=== PATIENT | female | born 1960 | race African-American/Black ===

== ENCOUNTER 2017-08-15 20:27 | Observation (INO) | payer OTHER ==
[2017-08-15] MEDS ORDERED: METOPROLOL SUCCINATE 50 MG TAB.SR.24H (FP) PO ONE (22:02)
[2017-08-15] MEDS ORDERED: ALBUTEROL SO4 2.5/IPRATROPIUM 0.5 INH SOL 3 ML VIAL.NEB. NEB ONE (22:03)
[2017-08-15] MEDS ORDERED: NITROGLYCERIN SUBLINGUAL 1/150 0.4 MG TAB SL ONE (22:03)
[2017-08-15] MEDS ORDERED: SODIUM CHLORIDE 0.9% 500 ML INFUS.BAG IV ONE (22:04)
--- NOTE | 2017-08-15 22:04 | PDOC ---
History of Present Illness - General History Source: Patient Exam Limitations: No Limitations - History of Present Illness Initial Comments: 08/15/17 22:15 The patient is a 56 year old female with a significant PMH of hypertension, hyperlipidemia, CAD, asthma/COPD who presents to the emergency department with complaints of congestion and headache that began approximately two days. The patient has not eaten anything today besides a glass of orange juice. The patient states she had her flu shot. The patient denies chest pain, shortness of breath, and dizziness. Denies fever, chills, nausea, vomit, diarrhea and constipation. Denies dysuria, frequency, urgency and hematuria. Allergies: NKA Past surgical history: None reported. Social history: Current smoker. No alcohol or drug use. PCP: Dr. Leiva <Stefanie Stout - Last Filed: 08/16/17 01:21> <Kayleigh Lind - Last Filed: 08/16/17 01:35> - General Chief Complaint: Cold Symptoms Stated Complaint: FATIGUE Time Seen by Provider: 08/15/17 21:25 Past History <Stefanie Stout - Last Filed: 08/16/17 01:21> - Past Medical History Asthma: Yes COPD: No HTN: Yes Seizures: Yes - Suicide/Smoking/Psychosocial Hx Smoking History: Never smoked Have you smoked in the past 12 months: No Number of Cigarettes Smoked Daily: 20 Information on smoking cessation initiated: No Hx Alcohol Use: No Drug/Substance Use Hx: No Substance Use Type: None <Kayleigh Lind - Last Filed: 08/16/17 01:35> - Past Medical History Allergies/Adverse Reactions: Allergies Allergy/AdvReac Type Severity Reaction Status Date / Time No Known Allergies Allergy Verified 08/15/17 20:41 Home Medications: Ambulatory Orders Aspirin [ASA -] 81 mg PO DAILY 10/17/13 Cyclobenzaprine HCl [Flexeril] 10 mg PO TID PRN #7 tablet 10/17/13 Lisinopril/Hydrochlorothiazide [Zestoretic 20-12.5 Tablet] 1 each PO DAILY 10/17 Metoprolol Succinate [Toprol XL -] 100 mg PO DAILY 10/17/13 Montelukast Na [Singulair -] 10 mg PO HS 10/17/13 Naproxen [Naprosyn -] 250 mg PO BID PRN #10 tablet 10/17/13 Oxycodone HCl/Acetaminophen [Percocet 5-325 mg Tablet -] 1 - 2 tab PO Q4H #20 tablet 01/08/14 Prednisone [Deltasone -] 10 mg PO DAILY #10 tablet 01/08/14 Review of Systems - Review of Systems Able to Perform ROS?: Yes Comments:: 08/15/17 22:08 GENERAL/CONSTITUTIONAL: No fever or chills. No weakness. HEAD, EYES, EARS, NOSE AND THROAT: No change in vision. No ear pain or discharge. No sore throat. CARDIOVASCULAR: No chest pain or shortness of breath. RESPIRATORY: (+) Congestion. (+) Wheezing. No hemoptysis. GASTROINTESTINAL: No nausea, vomiting, diarrhea or constipation. GENITOURINARY: No dysuria, frequency, or change in urination. MUSCULOSKELETAL: No joint or muscle swelling or pain. No neck or back pain. SKIN: No rash NEUROLOGIC: (+) Headache. No vertigo, loss of consciousness, or change in strength/sensation. ENDOCRINE: No increased thirst. No abnormal weight change. HEMATOLOGIC/LYMPHATIC: No anemia, easy bleeding, or history of blood clots. ALLERGIC/IMMUNOLOGIC: No hives or skin allergy. <Stefanie Stout - Last Filed: 08/16/17 01:21> *Physical Exam - Vital Signs Last Vital Signs Temp Pulse Resp BP Pulse Ox 98.5 F 98 H 20 186/130 100 08/15/17 20:36 08/15/17 20:36 08/15/17 20:36 08/15/17 20:36 08/15/17 20:36 - Physical Exam Comments: 08/15/17 22:07 GENERAL: Awake, alert, and fully oriented, in no acute distress HEAD: No signs of trauma EYES: PERRLA, EOMI, sclera anicteric, conjunctiva clear ENT: Auricles normal inspection, hearing grossly normal, nares patent, oropharynx clear without exudates. Moist mucosa NECK: Normal ROM, supple, no lymphadenopathy, JVD, or masses LUNGS:(+) Rales and wheezing bilaterally. No crackles. HEART: Regular rate and rhythm, normal S1 and S2, no murmurs, rubs or gallops ABDOMEN: Soft, nontender, normoactive bowel sounds. No guarding, no rebound. No masses EXTREMITIES: Normal range of motion, no edema. No clubbing or cyanosis. No cords, erythema, or tenderness NEUROLOGICAL: Cranial nerves II through XII grossly intact. Normal speech, normal gait SKIN: Warm, Dry, normal turgor, no rashes or lesions noted. <Stefanie Stout - Last Filed: 08/16/17 01:21> - Vital Signs Last Vital Signs Temp Pulse Resp BP Pulse Ox 98.5 F 98 H 20 186/130 100 08/15/17 20:36 08/15/17 20:36 08/15/17 20:36 08/15/17 20:36 08/15/17 20:36 <Kayleigh Lind - Last Filed: 08/16/17 01:35> Heart Score/ECG Review #1 08/16/17 01:21 EKG performed at [22:24] demonstrates rate of [102], rhythm of [Tachycardia], Bilateral enlargement. <Stefanie Stout - Last Filed: 08/16/17 01:21> ED Treatment Course - LABORATORY CBC & Chemistry Diagram: 08/15/17 22:48 08/15/17 23:14 <Stefanie Stout - Last Filed: 08/16/17 01:21> - LABORATORY CBC & Chemistry Diagram: 08/15/17 22:48 08/15/17 23:14 <Kayleigh Lind - Last Filed: 08/16/17 01:35> Medical Decision Making - Medical Decision Making 08/15/17 22:11 Pt comes with COPD and HTN and weakness x 1 day. States that she has had nothing to eat and that she dowsn't feels well. SHe has wheezing and rales bilaterally and she appears weak. 91% O2 on RA. She has 180s BP. After 2 SL NTG she goes down to 150 systolic/90 Pt will have duonebs and she will be given her metoprolol and procardia (pt carries her list of meds) Pt will get CXR, labs, EKG. 08/16/17 01:19 Pt still sounds awful and she will be admitted to medicine obs for asthma COPD exacerbation. <Kayleigh Lind - Last Filed: 08/16/17 01:35> *DC/Admit/Observation/Transfer - Attestations Scribe Attestion: 08/15/17 22:15 Documentation prepared by Stefanie Stout, acting as ophthalmic medical technologist for Kayleigh Lind MD. <Stefanie Stout - Last Filed: 08/16/17 01:21> - Discharge Dispostion Admit: Yes <Kayleigh Lind - Last Filed: 08/16/17 01:35> Diagnosis at time of Disposition: COPD exacerbation, Asthma exacerbation, Hypertension - Discharge Dispostion Condition at time of disposition: Guarded - Referrals Referrals: Yane Leiva MD [Primary Care Provider] - - Patient Instructions - Post Discharge Activity
[2017-08-15] MEDS ORDERED: ASPIRIN 81 MG CHEWABLE TABLETS PO ONE (22:13)
[2017-08-15] MEDS ORDERED: NIFEdipine 10 MG CAPSULE (FP) ONE (22:46)
[2017-08-15] MEDS ORDERED: METOPROLOL SUCCINATE 50 MG TAB.SR.24H (FP) ONE (22:46)
[2017-08-15] MEDS ORDERED: NITROGLYCERIN SUBLINGUAL 1/150 0.4 MG TAB ONE (22:46)
[2017-08-15 22:54] LABS: EOS % 14.4 % (0-4.5); HEMATOCRIT 42.3 % (32.4-45.2); HEMOGLOBIN 13.4 GM/dL (10.7-15.3); LYMPH % 31.1 % (8-40); MCH 27.2 pg (25.7-33.7); MCHC 31.7 g/dl (32.0-36.0); MEAN CELL VOLUME 85.8 fl (80-96); MEAN PLT VOLUME 9.5 fl (7.5-11.1); MONO % 8.6 % (3.8-10.2); NEUT % 44.9 % (42.8-82.8); PLATELET COUNT 290 K/MM3 (134-434); RBC 4.93 M/mm3 (3.60-5.2); RDW 14.1 % (11.6-15.6); WHITE BLOOD COUNT 8.4 K/mm3 (4.0-10.0)
[2017-08-15 23:08] LABS: INR 1.08 (0.82-1.09); PROTHROMBIN TIME (PATIENT) 12.2 SEC (9.98-11.88)
[2017-08-15 23:58] LABS: ANION GAP 7 (8-16); BILIRUBIN,TOTAL 0.5 mg/dL (0.2-1.0); BLOOD UREA NITROGEN 8 mg/dL (7-18); CALCIUM 8.5 mg/dL (8.5-10.1); CHLORIDE 102 mmol/L (98-107); CO2 32 mmol/L (21-32); CREATININE 0.7 mg/dL (0.55-1.02); GLUCOSE,RANDOM 104 mg/dL (74-106); POTASSIUM 3.5 mmol/L (3.5-5.1); SGOT/AST 23 U/L (15-37); SGPT/ALT 20 U/L (12-78); SODIUM 141 mmol/L (136-145); TOT PROT 7.3 g/dl (6.4-8.2)
[2017-08-15 23:59] LABS: ALK PHOS 115 U/L (45-117); N-TERMINAL BNP 183.63 pg/ml (5-125)
[2017-08-16] MEDS ORDERED: DEXAMETHASONE LIQUID 0.5 MG/5 ML 240 ML BULK BOTTLE PO ONE (01:17)
[2017-08-16] MEDS ORDERED: ALBUTEROL SO4 2.5/IPRATROPIUM 0.5 INH SOL 3 ML VIAL.NEB. NEB ONE ×4 (01:19→08:06)
[2017-08-16] MEDS ORDERED: methylPREDNISolone NA SUCC 125 MG/2 ML VIAL IVPB ONE (01:29)
[2017-08-16] MEDS ORDERED: MAGNESIUM SULF 50% (8.12 MEQ/2 ML-1 GM VIAL) IVPB ONE (02:19)
[2017-08-16] MEDS ORDERED: ACETAMINOPHEN 325 MG TABLET (FP) PO ONE (02:22)
[2017-08-16] MEDS ORDERED: CYCLOBENZAPRINE HCL 10 MG TABLET (FP) PO PRN (02:35)
[2017-08-16] MEDS ORDERED: GABAPENTIN 300 MG CAPSULE (FP) PO PRN (02:35)
[2017-08-16] MEDS ORDERED: ALBUTEROL SO4 0.083% IH SOL 2.5 MG/3 ML VIAL.NEB. NEB PRN (02:38)
--- NOTE | 2017-08-16 02:39 | HP ---
CHIEF COMPLAINT: chest congestion and headache PCP: Abbie HISTORY OF PRESENT ILLNESS: This is a 56 year old female with a significant past medical history of asthma/ COPD and CAD who presented to the ED with a 2 day history of increased unproductive cough, chest congestion/wheezing and headache ER course was notable for: (1) WBC 8.4 (2) CXR with no obvious acute infiltrates Recent Travel: [place] in June PAST MEDICAL HISTORY: HTN, HLD, CAD, COPD PAST SURGICAL HISTORY: 23 years ago 1 stent - cardiac age 41 or 42 partial thyroidectomy 2010 Social History: Smokinppd Alcohol: pt denies Drugs: pt denies Family History: mother with HTN, DM, lung CA father , complications of ETOH maternal GF , stomach CA brother with HTN, DM son with HTN Allergies No Known Allergies Allergy (Verified 08/15/17 20:41) HOME MEDICATIONS: 3 Medication Instructions Recorded Aspirin [ASA -] 81 mg PO DAILY 10/17/13 Cyclobenzaprine HCl [Flexeril] 10 mg PO TID PRN #7 tablet 10/17/13 Lisinopril/Hydrochlorothiazide 1 each PO DAILY 10/17/13 [Zestoretic 20-12.5 Tablet] Metoprolol Succinate [Toprol XL -] 100 mg PO DAILY 10/17/13 Montelukast Na [Singulair -] 10 mg PO HS 10/17/13 Naproxen [Naprosyn -] 250 mg PO BID PRN #10 tablet 10/17/13 Oxycodone HCl/Acetaminophen 1 - 2 tab PO Q4H #20 tablet 01/08/14 [Percocet 5-325 mg Tablet -] Prednisone [Deltasone -] 10 mg PO DAILY #10 tablet 01/08/14 REVIEW OF SYSTEMS CONSTITUTIONAL: Absent: fever, chills, diaphoresis, generalized weakness, malaise, loss of appetite, weight change HEENT: Absent: rhinorrhea, nasal congestion, throat pain, throat swelling, difficulty swallowing, mouth swelling, ear pain, eye pain, visual changes CARDIOVASCULAR: Absent: chest pain, syncope, palpitations, irregular heart rate, lightheadedness , peripheral edema RESPIRATORY: Present: cough, shortness of breath, dyspnea with exertion, wheezing Absent: orthopnea, stridor, hemoptysis GASTROINTESTINAL: Absent: abdominal pain, abdominal distension, nausea, vomiting, diarrhea, constipation, melena, hematochezia GENITOURINARY: Absent: dysuria, frequency, urgency, hesitancy, hematuria, flank pain, genital pain MUSCULOSKELETAL: Absent: myalgia, arthralgia, joint swelling, back pain, neck pain SKIN: Absent: rash, itching, pallor HEMATOLOGIC/IMMUNOLOGIC: Absent: easy bleeding, easy bruising, lymphadenopathy, frequent infections ENDOCRINE: Absent: unexplained weight gain, unexplained weight loss, heat intolerance, cold intolerance NEUROLOGIC: Present: headache Absent: focal weakness or paresthesias, dizziness, unsteady gait, seizure, mental status changes, bladder or bowel incontinence PSYCHIATRIC: Absent: anxiety, depression, suicidal or homicidal ideation, hallucinations. PHYSICAL EXAMINATION Vital Signs - 24 hr 3 08/15/17 20:36 Temperature 98.5 F Pulse Rate 98 H Respiratory 20 Rate Blood Pressure 186/130 O2 Sat by Pulse 100 Oximetry (%) GENERAL: Awake, alert, and fully oriented, in no acute distress. HEAD: Normal with no signs of trauma. EYES: Pupils equal, round and reactive to light, extraocular movements intact, sclera anicteric, conjunctiva clear. No lid lag. EARS, NOSE, THROAT: Ears normal, nares patent, oropharynx clear without exudates. Moist mucous membranes. NECK: Normal range of motion, supple without lymphadenopathy, JVD, or masses. LUNGS: Expiratory wheezing all lung pérez, poor air entry. No accessory muscle use. HEART: Regular rate and rhythm, normal S1 and S2 without murmur, rub or gallop. ABDOMEN: Soft, nontender, not distended, normoactive bowel sounds, no guarding, no rebound, no masses. No hepatomegaly or splenomegaly. MUSCULOSKELETAL: Normal range of motion at all joints. No bony deformities or tenderness. No CVA tenderness. UPPER EXTREMITIES: 2+ pulses, warm, well-perfused. No cyanosis. No clubbing. No peripheral edema. LOWER EXTREMITIES: 2+ pulses, warm, well-perfused. No calf tenderness. No peripheral edema. NEUROLOGICAL: Cranial nerves II-XII intact. Normal speech. Normal gait. PSYCHIATRIC: Cooperative. Good eye contact. Appropriate mood and affect. SKIN: Warm, dry, normal turgor, no rashes or lesions noted, normal capillary refill. Laboratory Results - last 24 hr 3 08/15/17 08/15/17 08/15/17 22:48 22:48 22:48 WBC 8.4 RBC 4.93 Hgb 13.4 Hct 42.3 MCV 85.8 MCH 27.2 MCHC 31.7 L RDW 14.1 Plt Count 290 MPV 9.5 Neutrophils % 44.9 Lymphocytes % 31.1 Monocytes % 8.6 Eosinophils % 14.4 H Basophils % 1.0 PT with INR 12.20 H INR 1.08 Sodium Cancelled Potassium Cancelled Chloride Cancelled Carbon Dioxide Cancelled Anion Gap Cancelled BUN Cancelled Creatinine Cancelled Creat Clearance w eGFR Cancelled Random Glucose Cancelled Calcium Cancelled Total Bilirubin Cancelled AST Cancelled ALT Cancelled Alkaline Phosphatase Cancelled Creatine Kinase Cancelled Troponin I Cancelled B-Natriuretic Peptide Total Protein Cancelled Albumin Cancelled 3 08/15/17 08/15/17 22:48 23:14 WBC RBC Hgb Hct MCV MCH MCHC RDW Plt Count MPV Neutrophils % Lymphocytes % Monocytes % Eosinophils % Basophils % PT with INR INR Sodium 141 Potassium 3.5 Chloride 102 Carbon Dioxide 32 Anion Gap 7 L BUN 8 Creatinine 0.7 Creat Clearance w eGFR > 60 Random Glucose 104 Calcium 8.5 Total Bilirubin 0.5 AST 23 ALT 20 Alkaline Phosphatase 115 Creatine Kinase Troponin I B-Natriuretic Peptide Cancelled 183.63 H Total Protein 7.3 Albumin 3.0 L ECG sinus tachycardia vent rate 102, QTC 487 flattened T waves lead 3 ASSESSMENT/PLAN: 56yF with PMH HTN, HLD, CAD, COPD presented to the ED with increased chest congestion, cough and headache x 2 days. COPD exacerbation - given solumedrol 125 in ED, cont 40mg q6h - duoneb x 1 now then QID standing, albuterol prn - consider CT chest if not improving - cont home symbicort - home tudorza changed to formulary spiriva - cont home singulair - smoking cessation HTN - elevated BP-given SL NTG and home procardia, repeat BP - cont home toprol, procardia and zestoretic HLD - cont home crestor CAD - cont home toprol, crestor, CHERYL-i, and ASA GERD - home prilosec changed to formulary protonix DVT PPX - chemoprophylaxis deferred as anticipated LOS <48h, reeval if stay exceeds FEN - tolerating po, no s/s dehydration, no IVF - BMP in am - low sodium diet as tolerated Dispo: Pt currently requires further inpatient observation and treatment. Visit type - Emergency Visit Emergency Visit: Yes ED Registration Date: 08/15/17 Care time: The patient presented to the Emergency Department on the above date and was hospitalized for further evaluation of their emergent condition. - New Patient This patient is new to me today: Yes Date on this admission: 08/16/17 - Critical Care Critical Care patient: No
[2017-08-16] MEDS ORDERED: methylPREDNISolone NA SUCC 40 MG/1 ML VIAL IVPUSH SCH ×2 (03:00→09:00)
[2017-08-16] MEDS ORDERED: ACETAMINOPHEN 325 MG TABLET (FP) ONE (03:29)
[2017-08-16] MEDS ORDERED: methylPREDNISolone NA SUCC 40 MG/1 ML VIAL ONE ×2 (03:30→08:06)
[2017-08-16] MEDS ORDERED: methylPREDNISolone NA SUCC 125 MG/2 ML VIAL ONE (03:30)
[2017-08-16 04:48] LABS: N-TERMINAL BNP 115.12 pg/ml (5-125)
[2017-08-16] MEDS ORDERED: ALBUTEROL SO4 2.5/IPRATROPIUM 0.5 INH SOL 3 ML VIAL.NEB. NEB SCH (08:00)
[2017-08-16 08:18] LABS: BASO % 0.4 % (0-2.0); EOS % 4.4 % (0-4.5); HEMATOCRIT 41.7 % (32.4-45.2); HEMOGLOBIN 13.3 GM/dL (10.7-15.3); LYMPH % 13.4 % (8-40); MCH 27.3 pg (25.7-33.7); MCHC 31.9 g/dl (32.0-36.0); MEAN CELL VOLUME 85.7 fl (80-96); MEAN PLT VOLUME 9.7 fl (7.5-11.1); MONO % 2.1 % (3.8-10.2); NEUT % 79.7 % (42.8-82.8); PLATELET COUNT 271 K/MM3 (134-434); RBC 4.86 M/mm3 (3.60-5.2); RDW 14.4 % (11.6-15.6); WHITE BLOOD COUNT 8.1 K/mm3 (4.0-10.0)
[2017-08-16 08:33] LABS: CHLORIDE 101 mmol/L (98-107); POTASSIUM 4.1 mmol/L (3.5-5.1); SODIUM 140 mmol/L (136-145)
[2017-08-16 08:51] LABS: ANION GAP 11 (8-16); BLOOD UREA NITROGEN 7 mg/dL (7-18); CO2 28 mmol/L (21-32); CREATININE 0.5 mg/dL (0.55-1.02); GLUCOSE,RANDOM 100 mg/dL (74-106); MAGNESIUM 2.8 mg/dL (1.8-2.4); PHOSPHOROUS 3.2 mg/dL (2.5-4.9)
[2017-08-16 09:53] VITALS: BP 158/82; PULSE 84; TEMP 98.2
[2017-08-16] MEDS ORDERED: NIFEdipine E.R. 30 MG TABLET (FP) PO SCH (10:00)
[2017-08-16] MEDS ORDERED: METOPROLOL SUCCINATE 100 MG TAB.SR.24H (FP) PO SCH (10:00)
[2017-08-16] MEDS ORDERED: NIFEdipine E.R 60 MG TABLET (UD) PO SCH (10:00)
[2017-08-16] MEDS ORDERED: ERGOCALCIFEROL (VITAMIN D2) 50,000 UNIT CAPSULE (FP) PO SCH (10:00)
[2017-08-16] MEDS ORDERED: PANTOPRAZOLE 20 MG TABLET (FP) PO SCH (10:00)
[2017-08-16] MEDS ORDERED: VITAMIN B COMPLEX W/C COMBO TABLET (FP) PO SCH (10:00)
[2017-08-16] MEDS ORDERED: LISINOPRIL 20 MG TABLET (FP) PO SCH (10:00)
[2017-08-16] MEDS ORDERED: PATIENT'S OWN MEDICATION (NON-FORMULARY) (Lisinopril/Hydrochlorothiazide [Lisinopril-Hctz PO SCH (10:00)
[2017-08-16] MEDS ORDERED: TIOTROPIUM BROMIDE 18 MCG/INH (DEVICE W/ 5 CAPSULES) IH SCH (10:00)
[2017-08-16] MEDS ORDERED: FERROUS SO4 325 MG TABLET (FP) PO SCH (10:00)
[2017-08-16] MEDS ORDERED: FOLIC ACID 1 MG TABLET (FP) PO SCH (10:00)
[2017-08-16] MEDS ORDERED: HYDROCHLOROTHIAZIDE 25 MG TABLET (FP) PO SCH (10:00)
[2017-08-16] MEDS ORDERED: ASPIRIN 81 MG CHEWABLE TABLETS PO SCH (10:00)
[2017-08-16] MEDS ORDERED: BUDESONIDE/FORMETEROL FUMARATE 160/4.5 mcg INHALER IH SCH (10:00)
[2017-08-16 10:25] VITALS: BMI 35.2
--- NOTE | 2017-08-16 10:32 | EKG ---
Test Reason : Blood Pressure : / mmHG Vent. Rate : 102 BPM Atrial Rate : 102 BPM P-R Int : 124 ms QRS Dur : 090 ms QT Int : 374 ms P-R-T Axes : 076 043 050 degrees QTc Int : 487 ms SINUS TACHYCARDIA BIATRIAL ENLARGEMENT ABNORMAL ECG WHEN COMPARED WITH ECG OF 10-JUN-2005 16:59, T WAVE INVERSION NO LONGER EVIDENT IN INFERIOR LEADS QT HAS LENGTHENED Confirmed by JOVANA SOLIS, PHYLLIS ([id number]) on 08/16/2017 10:32:14 AM Referred By: Confirmed By:PHYLLIS WHALEY MD
--- NOTE | 2017-08-16 11:15 | PN ---
Progress Note, Physician Chief Complaint: URI Wheezing SOB History of Present Illness: Started with URI cough congestion SOB 5 days ago. Ran out her prednisone. She went to see PCP on Wednesday thinking they were open, but the office was closed. Tried using Albuterol nebulizers at home without any relief, decided to come in to ER Yesterday. Feels okay at the moment, no SOB, mild to moderate cough and wheezing. Spo2 97% on RA. She received IV steroids, albuterol nebs in ER. Patient wants to go home. Her labs and CXR are unremarkable. - Current Medication List Current Medications: Active Medications Albuterol Sulfate (Ventolin 0.083% Nebulizer Soln -) 1 amp NEB Q4H PRN PRN Reason: SHORT OF BREATH/WHEEZING Albuterol/Ipratropium (Duoneb -) 1 amp NEB RQID [facility] Last Admin: 08/16/17 08:13 Dose: 1 amp Aspirin (Asa -) 81 mg PO DAILY [facility] Last Admin: 08/16/17 09:41 Dose: 81 mg Budesonide/Formoterol Fumarate (Symbicort 160/4.5mcg -) 2 puff IH BID [facility] Last Admin: 08/16/17 09:59 Dose: 2 puff Cyclobenzaprine HCl (Flexeril -) 10 mg PO HS PRN PRN Reason: PAIN Ergocalciferol (Drisdol -) 50,000 unit PO Mo@1000 [facility] Last Admin: 08/16/17 09:58 Dose: 50,000 unit Ferrous Sulfate (Feosol -) 325 mg PO DAILY [facility] Last Admin: 08/16/17 09:42 Dose: 325 mg Folic Acid (Folic Acid -) 1 mg PO DAILY [facility] Last Admin: 08/16/17 09:42 Dose: 1 mg Gabapentin (Neurontin -) 600 mg PO HS PRN PRN Reason: PAIN Hydrochlorothiazide (Hctz -) 25 mg PO DAILY [facility] Last Admin: 08/16/17 09:42 Dose: 25 mg Lisinopril (Prinivil) 20 mg PO DAILY [facility] Last Admin: 08/16/17 09:42 Dose: 20 mg Methylprednisolone Sodium Succinate (Solu-Medrol -) 40 mg IVPUSH Q6H-IV [facility] Last Admin: 08/16/17 08:13 Dose: 40 mg Metoprolol Succinate (Toprol Xl -) 100 mg PO DAILY [facility] Last Admin: 08/16/17 09:43 Dose: 100 mg Montelukast Sodium (Singulair -) 10 mg PO HS [facility] Multivitamins (Total B With C -) 1 each PO DAILY [facility] Last Admin: 08/16/17 09:43 Dose: 1 each Nifedipine (Procardia Xl -) 60 mg PO DAILY [facility] Last Admin: 08/16/17 09:43 Dose: 60 mg Oxycodone/Acetaminophen (Percocet 5/325 -) 1 combo PO Q4H PRN PRN Reason: PAIN LEVEL 6-10 Pantoprazole Sodium (Protonix -) 20 mg PO DAILY [facility] Last Admin: 08/16/17 09:43 Dose: 20 mg Rosuvastatin Calcium (Crestor -) 10 mg PO HS [facility] Tiotropium Pomerene (Spiriva -) 1 puff IH DAILY [facility] Last Admin: 08/16/17 09:58 Dose: 1 puff - Objective Vital Signs: Vital Signs Temperature 98.2 F 08/16/17 09:52 Pulse Rate 84 08/16/17 09:52 Respiratory Rate 16 08/16/17 09:52 Blood Pressure 158/82 08/16/17 09:52 O2 Sat by Pulse Oximetry (%) 100 08/16/17 09:52 Constitutional: Yes: Well Nourished, No Distress, Calm Cardiovascular: Yes: Regular Rate and Rhythm Respiratory: Yes: Regular, Wheezes (diffuse) Gastrointestinal: Yes: WNL Musculoskeletal: Yes: WNL Extremities: Yes: WNL Edema: No Peripheral Pulses WNL: Yes Neurological: Yes: Alert, Oriented Psychiatric: Yes: Alert, Oriented Labs: CBC, BMP 08/16/17 07:30 08/16/17 07:30 INR, PTT INR 1.08 (0.82-1.09) 08/15/17 22:48 Problem List - Problems (1) Asthmatic bronchitis Assessment/Plan: Discharge home on PO abx and steroids She will follow up with PCP within this week, appointment has been set up for her already Code(s): J45.909 - UNSPECIFIED ASTHMA, UNCOMPLICATED (2) COPD exacerbation Code(s): J44.1 - CHRONIC OBSTRUCTIVE PULMONARY DISEASE W (ACUTE) EXACERBATION Assessment/Plan see problem list
[2017-08-16] MEDS ORDERED: MONTELUKAST NA 10 MG TABLET PO SCH (22:00)
[2017-08-16] MEDS ORDERED: ROSUVASTATIN CA 10 MG TABLET (FP) PO SCH (22:00)
== END 2017-08-16 11:59 | disposition home or self-care (01) ==
LOC: JER 20:27 → JERBED 08-16 01:35 → UNDOADMOB 08-16 01:44
PROVIDERS: ADMIT Internal Medicine; ATTEND Family Medicine
PROC: 3E0333Z Introduction of Anti-inflammatory into Peripheral Vein, Percutaneous Approach (ICD-10-PCS; principal; 2017-08-16)
PROC: 3E033GC Introduction of Other Therapeutic Substance into Peripheral Vein, Percutaneous Approach (ICD-10-PCS; 2017-08-16)
PROC: 3E0F7GC Introduction of Other Therapeutic Substance into Respiratory Tract, Via Natural or Artificial Opening (ICD-10-PCS; 2017-08-16)
DX: J44.1 Chronic obstructive pulmonary disease with (acute) exacerbation (principal); J45.901 Unspecified asthma with (acute) exacerbation; I10 Essential (primary) hypertension; I25.10 Atherosclerotic heart disease of native coronary artery without angina pectoris; E78.5 Hyperlipidemia, unspecified; K21.9 Gastro-esophageal reflux disease without esophagitis; Z79.82 Long term (current) use of aspirin
CPT/HCPCS: 36415; 71045-TC; 80048; 80053; 82550; 82553; 83735; 83880; 84100; 84484; 85025; 85610; 87804; 93005; 93010; 99285-25; G0378

== ENCOUNTER 2018-05-06 19:10 | Emergency (ER) | payer OTHER ==
[2018-05-06 19:21] VITALS: TEMP 99.5; BMI 35.7
[2018-05-06] MEDS ORDERED: ALBUTEROL SO4 2.5/IPRATROPIUM 0.5 INH SOL 3 ML VIAL.NEB. NEB ONE ×2 (19:27→19:36)
[2018-05-06] MEDS ORDERED: predniSONE 20 MG TABLET (UD) PO ONE (19:36)
[2018-05-06] MEDS ORDERED: predniSONE 20 MG TABLET (UD) ONE (19:38)
[2018-05-06] MEDS ORDERED: NIFEdipine E.R. 30 MG TABLET (FP) ONE (19:39)
--- NOTE | 2018-05-06 19:39 | PDOC ---
Attending Attestation - HPI HPI: 05/06/18 21:24 The patient is a 57-year-old female, works as a professor of nursing at [employer] , with past medical history of CAD s/p stents, COPD, HTN, and HLD presents to the emergency department with shortness of breath and a cough. The patient presents with several days of a cough, nonproductive in character. The patient states a week prior she had cold symptoms, reports taking medication, without relief. The patient reports additional concern of L. jaw pain, with difficulty opening the mouth and chewing. The patient indicates she is noncompliant with her BP medication. Denies fever, chills, nausea, vomiting or chest pain. The patient reports pain to the shoulder, states its secondary to coughing. Allergies: NKA. Social history: Current smoker. No alcohol or recreational drug use reported. PCP: Dr. Valenzuela. - Physicial Exam PE: 05/06/18 21:24 GENERAL: BP at arrival 191 R. arm systolic, L. arm 201 systolic. Speaking full sentence. Low grade temperature noted. The patient is in no acute distress. HEAD:(+) L. ankle of the jaw pain. Normal with no signs of trauma. EYES: PERRLA, EOMI, sclera anicteric, conjunctiva clear. ENT: Ears normal, nares patent, oropharynx clear without exudates. Moist mucous membranes. NECK: Normal range of motion, supple without lymphadenopathy, JVD, or masses. LUNGS: B/l wheezing. Breath sounds equal, clear to auscultation bilaterally. no crackles. HEART:(+) Tacky to 104. normal S1 and S2 without murmur, rub or gallop. ABDOMEN: Soft, nontender, normoactive bowel sounds. No guarding, no rebound. No masses palpable. EXTREMITIES: Normal range of motion, no edema. No clubbing or cyanosis. No erythema, or tenderness. NEUROLOGICAL: Cranial nerves II through XII grossly intact. Normal speech. No focal neurological deficits. MUSCULOSKELETAL: Back non-tender to palpation, no CVA tenderness SKIN: Warm to touch, Dry, normal turgor, no rashes or lesions noted. - Medical Decision Making 05/06/18 21:27 Documentation prepared by Kaitlyn Simental, acting as claim review medical director for Kayleigh Lind MD. <Kaitlyn Simental - Last Filed: 05/06/18 21:28> - Resident Resident Name: Victor M Ruiz - Medical Decision Making 05/06/18 22:48 Labs normal. Pt's CXR seems same as old. CT facial bones pending. <Kayleigh Lind - Last Filed: 05/06/18 22:48>
[2018-05-06] MEDS ORDERED: NITROGLYCERIN SUBLINGUAL 1/150 0.4 MG TAB SL ONE (20:00)
[2018-05-06] MEDS ORDERED: ACETAMINOPHEN 500 MG TABLET (FP) PO ONE (20:00)
[2018-05-06] MEDS ORDERED: ACETAMINOPHEN 325 MG TABLET (FP) ONE (20:11)
[2018-05-06] MEDS ORDERED: NITROGLYCERIN SUBLINGUAL 1/150 0.4 MG TAB ONE (20:12)
--- NOTE | 2018-05-06 20:21 | PDOC ---
History of Present Illness - General Chief Complaint: Shortness of Breath Stated Complaint: DIFFICULTY BREATHING Time Seen by Provider: 05/06/18 19:25 History Source: Patient Exam Limitations: No Limitations - History of Present Illness Initial Comments: 05/06/18 20:10 Patient is a 57F with history of HTN, COPD, CAD s/p stent (16 years ago) here today complaining of shortness of breath for the past two days. She also complains of one week of cough, rhinorrhea and ear pain. Her PCP states that she was in the office and was unable to open her mouth due to pain along the upper left aspect of her jaw. Patient denies chest pain, endorses right sided shoulder pain with coughing. Denies fevers, chills. Denies prior history of blood clots, leg swelling. Patient is active smoker. Patient states that she "might have" missed several doses of her medications this week. Patient also complains of pain to her left ear and jaw started last night. Patient reports no loss of hearing, states that she can't open her mouth as much as usual secondary to pain. PCP: Bianca Past History - Past Medical History Allergies/Adverse Reactions: Allergies Allergy/AdvReac Type Severity Reaction Status Date / Time No Known Allergies Allergy Verified 05/06/18 19:18 Home Medications: Ambulatory Orders Aspirin [ASA -] 81 mg PO DAILY 10/17/13 Metoprolol Succinate [Toprol XL -] 100 mg PO DAILY 10/17/13 Albuterol 2.5/Ipratropium 0.5 [Duoneb -] 1 amp NEB RQID amp 08/16/17 Albuterol Sulfate [Proventil HFA Inhaler -] 1 - 2 inh PO QID PRN 08/16/17 Cyclobenzaprine HCl [Flexeril] 10 mg PO HS PRN 08/16/17 Folic Acid 1 mg PO DAILY 08/16/17 Nifedipine [Procardia Xl] 60 mg PO DAILY 08/16/17 Oxycodone HCl/Acetaminophen [Percocet 5-325 mg Tablet] 1 - 2 tab PO Q4H PRN Prednisone 10 mg PO ASDIR #65 tablet 08/16/17 Rosuvastatin Calcium [Crestor] 10 mg PO DAILY 08/16/17 Tiotropium [place] [Spiriva] 1 puff IH DAILY #1 inh 08/16/17 Aclidinium [place] [Tudorza Pressair] 400 mcg IH BID 05/06/18 Budesonide/Formeterol Fumarate [SYMBICORT 160/4.5mcg -] 1 inh PO BID 05/06/18 Ergocalciferol (Vitamin D2) [Drisdol] 50,000 unit PO DAILY 05/06/18 Gabapentin Enacarbil [Horizant] 600 mg PO BID 05/06/18 Venlafaxine HCl ER [Effexor Xr -] 75 mg PO DAILY 05/06/18 Vitamin B Complex 1 each PO DAILY 05/06/18 Albuterol Sulfate Inhaler - [Ventolin Hfa Inhaler -] 1 - 2 inh PO QID #1 inhaler 05/07/18 Prednisone [Deltasone] 60 mg PO DAILY #5 tablet 05/07/18 Asthma: Yes COPD: No HTN: Yes Seizures: Yes - Suicide/Smoking/Psychosocial Hx Smoking History: Current every day smoker Have you smoked in the past 12 months: No Number of Cigarettes Smoked Daily: 20 Information on smoking cessation initiated: No Hx Alcohol Use: No Drug/Substance Use Hx: No Substance Use Type: None Review of Systems - Review of Systems Comments:: 05/06/18 20:14 GENERAL/CONSTITUTIONAL: No fever or chills. No weakness. HEAD, EYES, EARS, NOSE AND THROAT: No change in vision. +ear pain no discharge. No sore throat. CARDIOVASCULAR: No chest pain +shortness of breath RESPIRATORY: No cough, wheezing, or hemoptysis. GASTROINTESTINAL: No nausea, vomiting, diarrhea or constipation. GENITOURINARY: No dysuria, frequency, or change in urination. MUSCULOSKELETAL: No joint or muscle swelling or pain. No neck or back pain. SKIN: No rash NEUROLOGIC: No headache, vertigo, loss of consciousness, or change in strength/ sensation. ENDOCRINE: No increased thirst. No abnormal weight change HEMATOLOGIC/LYMPHATIC: No anemia, easy bleeding, or history of blood clots. ALLERGIC/IMMUNOLOGIC: No hives or skin allergy. *Physical Exam - Vital Signs Last Vital Signs Temp Pulse Resp BP Pulse Ox 99.5 F 110 H 20 206/105 H 100 05/06/18 19:19 05/06/18 19:19 05/06/18 19:19 05/06/18 19:19 10/05/18 19:19 - Physical Exam Comments: 05/06/18 20:27 GENERAL: Awake, alert, and fully oriented, in no acute distress HEAD: No signs of trauma, normocephalic, atraumatic EYES: PERRLA, EOMI, sclera anicteric, conjunctiva clear ENT: Auricles normal inspection, hearing grossly normal, nares patent, oropharynx clear without exudates. Moist mucosa. Jaw limited opening. Tender over left masseter muscle. TMs obstructed by earwax, but no signs of otitis media or otitis externa NECK: Normal ROM, supple, no lymphadenopathy, JVD, or masses LUNGS: No distress, speaks full sentences, wheezing bilaterally HEART: Tachycardic normal S1 and S2, no murmurs, rubs or gallops, peripheral pulses normal and equal bilaterally. ABDOMEN: Soft, nontender, normoactive bowel sounds. No guarding, no rebound. No masses EXTREMITIES: Normal inspection, Normal range of motion, no edema. No clubbing or cyanosis. NEUROLOGICAL: Cranial nerves II through XII grossly intact. Normal speech, normal gait, no focal sensorimotor deficits SKIN: Warm, Dry, normal turgor, no rashes or lesions noted. ED Treatment Course - LABORATORY CBC & Chemistry Diagram: 05/06/18 19:59 05/06/18 19:36 - ADDITIONAL ORDERS Additional order review: Laboratory Results 05/06/18 19:32 Sodium Cancelled Potassium Cancelled Chloride Cancelled Carbon Dioxide Cancelled Anion Gap Cancelled BUN Cancelled Creatinine Cancelled Creat Clearance w eGFR Cancelled Random Glucose Cancelled Calcium Cancelled Magnesium Cancelled Total Bilirubin Cancelled AST Cancelled ALT Cancelled Alkaline Phosphatase Cancelled Creatine Kinase Cancelled Troponin I Cancelled Total Protein Cancelled Albumin Cancelled 05/06/18 19:36 RBC Cancelled MCV Cancelled MCHC Cancelled RDW Cancelled MPV Cancelled Neutrophils % Cancelled Lymphocytes % Cancelled Monocytes % Cancelled Eosinophils % Cancelled Basophils % Cancelled - RADIOLOGY Radiology Studies Ordered: Category Date Time Status CHEST PA & LAT [RAD] Stat Radiology 05/06/18 19:34 Ordered - Medications Given in the ED: ED Medications Discontinued Medications Generic Name Dose Route Start Last Admin Trade Name Freq PRN Reason Stop Dose Admin Albuterol/Ipratropium 2 amp 05/06/18 19:36 05/06/18 19:37 Duoneb - NEB 05/06/18 19:37 2 amp ONCE ONE Administration Prednisone 60 mg 05/06/18 19:36 05/06/18 19:44 Deltasone - PO 05/06/18 19:37 60 mg ONCE ONE Administration Medical Decision Making - Medical Decision Making 05/06/18 20:28 Patient is 57F with history of HTN, COPD, CAD s/p stent here today with multiple complaints. Vital signs notable for hypertension to 200/110. Tactile fever, tachycardic. Patient however does appear well. DDx for shortness of breath includes, but is not limited to: COPD exacerbation, pneumonia, viral URI , bronchitis, atypical ACS. DDx for ear pain and left sided jaw pain includes, but is not limited to: TMJ, otitis media, deep space infection. Will work up with cbc, cmp, mg, phos, trop, ekg, cxr, pt/inr, facial bones ct w/ contrast. Given duonebs and steroids. Given nitro and home medication for BP. Will reassess and likely admit. 05/06/18 23:36 Patient reassessed, lungs clear. Still having pain to L jaw. CBC normal. CMP normal. CXR shows no pneumonia. Pending CT. 05/07/18 00:48 CT shows ?chronic parotitis on left side. No collection of fluid. Chronic parotitis does not fit chronicity of complaint. Patient states that the pain onset suddenly this morning after multiple episodes of coughing. Pain has continued to improve. Will discharge home. Believe patient has COPD exacerbation 2/2 viral URI. Vitals normalized after receiving home medications. No longer wheezing. *DC/Admit/Observation/Transfer Diagnosis at time of Disposition: Viral URI, COPD exacerbation - Discharge Dispostion Disposition: HOME Condition at time of disposition: Good Decision to Admit order: No - Prescriptions Prescriptions: Prednisone [Deltasone] 60 mg PO DAILY #5 tablet - Referrals Referrals: Yane Leiva MD [Primary Care Provider] - - Patient Instructions Printed Discharge Instructions: DI for Chronic Obstructive Pulmonary Disease Additional Instructions: Please follow up with your primary care doctor and dentist this week. Please return if you have any new, worsening or concerning symptoms, especially fever, chills and increasing shortness of breath. - Post Discharge Activity
[2018-05-06 20:33] LABS: BASO % 1.3 % (0-2.0); EOS % 4.7 % (0-4.5); HEMATOCRIT 40.1 % (32.4-45.2); HEMOGLOBIN 12.9 GM/dL (10.7-15.3); LYMPH % 29.2 % (8-40); MCH 27.5 pg (25.7-33.7); MCHC 32.2 g/dl (32.0-36.0); MEAN CELL VOLUME 85.5 fl (80-96); MONO % 6.8 % (3.8-10.2); PLATELET COUNT 268 K/MM3 (134-434); RBC 4.69 M/mm3 (3.60-5.2); RDW 14.7 % (11.6-15.6); WHITE BLOOD COUNT 8.9 K/mm3 (4.0-10.0)
[2018-05-06 20:50] LABS: INR 1.06 (0.83-1.09); PROTHROMBIN TIME (PATIENT) 12.5 SEC (9.7-13.0)
[2018-05-06 21:17] LABS: ALBUMIN 3.3 g/dl (3.4-5.0); ALK PHOS 114 U/L (45-117); ANION GAP 6 MMOL/L (8-16); BILIRUBIN,TOTAL 0.7 mg/dL (0.2-1); BLOOD UREA NITROGEN 5 mg/dL (7-18); CALCIUM 9.1 mg/dL (8.5-10.1); CHLORIDE 102 mmol/L (98-107); CO2 29 mmol/L (21-32); CREATININE 0.5 mg/dL (0.55-1.3); GLUCOSE,RANDOM 104 mg/dL (74-106); POTASSIUM 3.9 mmol/L (3.5-5.1); SGOT/AST 23 U/L (15-37); SGPT/ALT 16 U/L (13-61); SODIUM 137 mmol/L (136-145); TOT PROT 7.6 g/dl (6.4-8.2)
[2018-05-06 21:32] VITALS: BP 141/88; PULSE 101
--- NOTE | 2018-05-07 17:00 | EKG ---
Test Reason : Blood Pressure : / mmHG Vent. Rate : 098 BPM Atrial Rate : 098 BPM P-R Int : 178 ms QRS Dur : 094 ms QT Int : 368 ms P-R-T Axes : 068 044 021 degrees QTc Int : 469 ms NORMAL SINUS RHYTHM BIATRIAL ENLARGEMENT ABNORMAL ECG WHEN COMPARED WITH ECG OF 15-AUG-2017 22:24, NO SIGNIFICANT CHANGE WAS FOUND Confirmed by RUBIO SOLIS, RACHELL ([id number]) on 05/07/2018 4:59:45 PM Referred By: Confirmed By:RACHELL BERGERON MD
[2018-05-07] MEDS ORDERED: NIFEdipine E.R 60 MG TABLET (UD) PO ONE (19:35)
== END 2018-05-07 00:59 | disposition home or self-care (01) ==
LOC: JER 19:10
PROC: 3E0F7GC Introduction of Other Therapeutic Substance into Respiratory Tract, Via Natural or Artificial Opening (ICD-10-PCS; principal; 2018-05-06)
DX: J44.1 Chronic obstructive pulmonary disease with (acute) exacerbation (principal); J06.9 Acute upper respiratory infection, unspecified; R68.84 Jaw pain; I25.10 Atherosclerotic heart disease of native coronary artery without angina pectoris; I10 Essential (primary) hypertension; Z95.5 Presence of coronary angioplasty implant and graft; E78.5 Hyperlipidemia, unspecified
CPT/HCPCS: 36415; 70487-TC; 71046-TC-FY; 80053; 82550; 82553; 83735; 84484; 85025; 85610; 93005; 93010; 99284-25; J7620

== ENCOUNTER 2019-01-21 19:06 | Inpatient (IN) | payer OTHER | END 2019-01-26 14:33 | disposition home or self-care (01) | LOC: JERBED 22:08 → JER 19:06 → J5S 01-22 02:54 ==

== ENCOUNTER 2020-11-27 04:24 | Inpatient (IN) | payer OTHER ==
[2020-11-27 04:41] VITALS: BMI 31.6
[2020-11-27] MEDS ORDERED: ALBUTEROL SO4 2.5/IPRATROPIUM 0.5 INH SOL 3 ML VIAL.NEB. NEB ONE ×4 (04:54→06:39)
[2020-11-27 05:18] LABS: BASO % 1.2 % (0-2.0); EOS % 7.3 % (0-4.5); HEMATOCRIT 42.4 % (32.4-45.2); LYMPH % 21.3 % (8-40); MCH 28.7 pg (25.7-33.7); MCHC 33.1 g/dl (32.0-36.0); MEAN CELL VOLUME 86.9 fl (80-96); MONO % 4.2 % (3.8-10.2); PLATELET COUNT 270 K/MM3 (134-434); RBC 4.88 M/mm3 (3.60-5.2); RDW 14.2 % (11.6-15.6)
[2020-11-27 05:21] LABS: URINE APPEARANCE CLEAR; URINE BILIRUBIN NEGATIVE (NEGATIVE); URINE COLOR YELLOW; URINE GLUCOSE (UA) NEGATIVE (NEGATIVE); URINE KETONE NEGATIVE (NEGATIVE); URINE LEUK ESTERASE NEGATIVE (NEGATIVE); URINE NITRITE NEGATIVE (NEGATIVE); URINE PROTEIN NEGATIVE (NEGATIVE); URINE UROBILINOGEN 0.2 mg/dL (0.2-1.0)
[2020-11-27 05:27] LABS: INR 0.98 (0.83-1.09); PROTHROMBIN TIME (PATIENT) 11.9 SEC (9.7-13.0)
[2020-11-27 05:36] LABS: CHLORIDE 106 mmol/L (98-107); SODIUM 141 mmol/L (136-145)
[2020-11-27 05:38] LABS: ALBUMIN 3.5 g/dl (3.4-5.0); ANION GAP 6 MMOL/L (8-16); BLOOD UREA NITROGEN 8.6 mg/dL (7-18); CALCIUM 8.9 mg/dL (8.5-10.1); CO2 29 mmol/L (21-32)
[2020-11-27 05:40] LABS: GLUCOSE,RANDOM 122 mg/dL (74-106)
[2020-11-27 05:42] LABS: CREATININE 0.6 mg/dL (0.55-1.3); SGOT/AST 36 U/L (15-37); SGPT/ALT 21 U/L (13-61)
[2020-11-27 05:43] LABS: BILIRUBIN,TOTAL 0.4 mg/dL (0.2-1); TOT PROT 7.5 g/dl (6.4-8.2)
[2020-11-27 05:44] LABS: ALK PHOS 109 U/L (45-117)
[2020-11-27] MEDS ORDERED: ACETAMINOPHEN 1000 MG/100 ML VIAL (NON FORMULARY) IVPB PRN (07:42)
[2020-11-27] MEDS ORDERED: ACETAMINOPHEN 325 MG TABLET (FP) PO PRN (07:42)
[2020-11-27] MEDS ORDERED: ACETAMINOPHEN INJECTION 100 ML IVPB ONE (08:18)
[2020-11-27] MEDS ORDERED: ALBUTEROL SO4 2.5/IPRATROPIUM 0.5 INH SOL 3 ML VIAL.NEB. NEB PRN (08:46)
[2020-11-27 09:28] LABS: N-TERMINAL BNP 166.9 pg/ml (5-125)
[2020-11-27] MEDS ORDERED: ASPIRIN 81 MG CHEWABLE TABLETS ONE (09:44)
[2020-11-27] MEDS ORDERED: FOLIC ACID 1 MG TABLET (FP) ONE (09:44)
[2020-11-27] MEDS ORDERED: NIFEdipine E.R. 30 MG TABLET ONE (09:44)
[2020-11-27] MEDS ORDERED: TIOTROPIUM BROMIDE 2.5 MCG (SPIRIVA) RESPIMAT INHALER IH SCH (10:00)
[2020-11-27] MEDS ORDERED: POTASSIUM CHLORIDE TABS 20 MEQ TABLET.ER (FP) PO ONE ×2 (10:00→10:14)
[2020-11-27] MEDS: VENLAFAXINE HCL 75 MG E.R. CAPSULES PO SCH (10:27)
[2020-11-27] MEDS: ASPIRIN 81 MG CHEWABLE TABLETS PO SCH (10:27)
[2020-11-27] MEDS: FOLIC ACID 1 MG TABLET (FP) PO SCH (10:28)
[2020-11-27] MEDS: NIFEdipine E.R 60 MG TABLET PO SCH (10:29)
[2020-11-27] MEDS ORDERED: PT OWN MED DRAWER 7, Y5N ONE (10:57)
[2020-11-27] MEDS: BUDESONIDE/FORMETEROL FUMARATE 160/4.5 mcg INHALER IH SCH ×2 (11:05→22:39)
[2020-11-27] MEDS ORDERED: ALBUTEROL SO4 0.083% IH SOL 2.5 MG/3 ML VIAL.NEB. NEB PRN (13:36)
[2020-11-27] MEDS: ACETAMINOPHEN 325 MG TABLET (FP) PO PRN ×3 (14:05→22:39)
[2020-11-27] MEDS ORDERED: ACETAMINOPHEN 325 MG TABLET (FP) ONE (14:06)
[2020-11-27] MEDS ORDERED: hydrALAZINE HCL 25 MG TABLET (FP) ONE (14:24)
[2020-11-27] MEDS ORDERED: LOSARTAN POTASSIUM 50 MG TABLET ONE (14:25)
[2020-11-27] MEDS ORDERED: AZITHROMYCIN IVPB 500 MG/250 ML BAG IVPB ONE (14:25)
[2020-11-27] MEDS ORDERED: methylPREDNISolone NA SUCC 40 MG/1 ML VIAL ONE (14:25)
[2020-11-27] MEDS: methylPREDNISolone NA SUCC 40 MG/1 ML VIAL IVPUSH SCH ×2 (14:30→17:15)
[2020-11-27] MEDS: LOSARTAN POTASSIUM 50 MG TABLET PO SCH (14:30)
[2020-11-27] MEDS: hydrALAZINE HCL 25 MG TABLET (FP) PO SCH ×2 (14:30→21:40)
[2020-11-27] MEDS: AZITHROMYCIN IVPB 500 MG/250 ML BAG IVPB SCH (14:35)
[2020-11-27] MEDS: ALBUTEROL SO4 2.5/IPRATROPIUM 0.5 INH SOL 3 ML VIAL.NEB. NEB SCH ×2 (16:32→20:35)
[2020-11-27] MEDS: ROSUVASTATIN CA 10 MG TABLET (FP) PO SCH (21:40)
[2020-11-27] MEDS: MELATONIN 5 MG TABLETS PO PRN (22:39)
[2020-11-28] MEDS: methylPREDNISolone NA SUCC 40 MG/1 ML VIAL IVPUSH SCH ×3 (03:00→17:01)
[2020-11-28] MEDS: hydrALAZINE HCL 25 MG TABLET (FP) PO SCH ×3 (06:27→21:51)
[2020-11-28] MEDS: ALBUTEROL SO4 2.5/IPRATROPIUM 0.5 INH SOL 3 ML VIAL.NEB. NEB SCH ×4 (08:16→20:15)
[2020-11-28] MEDS ORDERED: PT OWN MED DRAWER 7, Y5N ONE (10:01)
[2020-11-28] MEDS: LOSARTAN POTASSIUM 50 MG TABLET PO SCH (10:20)
[2020-11-28] MEDS: ASPIRIN 81 MG CHEWABLE TABLETS PO SCH (10:20)
[2020-11-28] MEDS: VENLAFAXINE HCL 75 MG E.R. CAPSULES PO SCH (10:20)
[2020-11-28] MEDS: FOLIC ACID 1 MG TABLET (FP) PO SCH (10:21)
[2020-11-28] MEDS: NIFEdipine E.R 60 MG TABLET PO SCH (10:21)
[2020-11-28] MEDS: AZITHROMYCIN IVPB 500 MG/250 ML BAG IVPB SCH (10:21)
[2020-11-28] MEDS: BUDESONIDE/FORMETEROL FUMARATE 160/4.5 mcg INHALER IH SCH ×2 (10:24→21:52)
[2020-11-28] MEDS ORDERED: NIFEdipine E.R. 30 MG TABLET PO ONE (11:05)
[2020-11-28] MEDS ORDERED: ACETAMINOPHEN 325 MG TABLET (FP) PO PRN (11:11)
[2020-11-28 11:55] LABS: BASO % 0.7 % (0-2.0); HEMATOCRIT 42.9 % (32.4-45.2); HEMOGLOBIN 13.9 GM/dL (10.7-15.3); LYMPH % 9.3 % (8-40); MCH 28.2 pg (25.7-33.7); MCHC 32.5 g/dl (32.0-36.0); MEAN PLT VOLUME 9.4 fl (7.5-11.1); PLATELET COUNT 327 K/MM3 (134-434); RBC 4.93 M/mm3 (3.60-5.2); RDW 14.2 % (11.6-15.6); WHITE BLOOD COUNT 14.8 K/mm3 (4.0-10.0)
[2020-11-28 12:23] LABS: ALBUMIN 3.5 g/dl (3.4-5.0); CALCIUM 9.9 mg/dL (8.5-10.1)
[2020-11-28 12:27] LABS: CREATININE 0.6 mg/dL (0.55-1.3)
[2020-11-28 12:28] LABS: BILIRUBIN,TOTAL 0.3 mg/dL (0.2-1); TOT PROT 7.6 g/dl (6.4-8.2)
[2020-11-28] MEDS: ROSUVASTATIN CA 10 MG TABLET (FP) PO SCH (21:51)
[2020-11-28] MEDS: MELATONIN 5 MG TABLETS PO PRN (21:51)
[2020-11-29] MEDS: methylPREDNISolone NA SUCC 40 MG/1 ML VIAL IVPUSH SCH ×2 (03:52→09:40)
[2020-11-29 06:10] VITALS: BP 160/75; PULSE 66; TEMP 98.3
[2020-11-29] MEDS: hydrALAZINE HCL 25 MG TABLET (FP) PO SCH (06:34)
[2020-11-29] MEDS: ALBUTEROL SO4 2.5/IPRATROPIUM 0.5 INH SOL 3 ML VIAL.NEB. NEB SCH ×2 (07:25→12:01)
[2020-11-29] MEDS ORDERED: PT OWN MED DRAWER 7, Y5N ONE (09:18)
[2020-11-29] MEDS: VENLAFAXINE HCL 75 MG E.R. CAPSULES PO SCH (09:39)
[2020-11-29] MEDS: ASPIRIN 81 MG CHEWABLE TABLETS PO SCH (09:39)
[2020-11-29] MEDS: FOLIC ACID 1 MG TABLET (FP) PO SCH (09:39)
[2020-11-29] MEDS: LOSARTAN POTASSIUM 50 MG TABLET PO SCH (09:40)
[2020-11-29] MEDS: BUDESONIDE/FORMETEROL FUMARATE 160/4.5 mcg INHALER IH SCH (09:41)
[2020-11-29] MEDS: AZITHROMYCIN IVPB 500 MG/250 ML BAG IVPB SCH (09:41)
[2020-11-29] MEDS ORDERED: NIFEdipine E.R. 90 MG TABLET PO SCH (10:00)
[2020-11-29] MEDS ORDERED: predniSONE 20 MG TABLET (UD) PO SCH (13:15)
[2020-11-30] MEDS ORDERED: AZITHROMYCIN 250 MG TABLET PO SCH (10:00)
[2020-11-30] MEDS ORDERED: AZITHROMYCIN 500 MG TABLET PO SCH (10:00)
== END 2020-11-29 13:07 | disposition home or self-care (01) | DRG 305 ==
LOC: JER 04:24 → JERBED 05:55 → J4W 15:38
PROVIDERS: ADMIT Family Medicine; ATTEND Family Medicine
DX: I16.0 Hypertensive urgency (principal); J44.1 Chronic obstructive pulmonary disease with (acute) exacerbation; I10 Essential (primary) hypertension; I25.10 Atherosclerotic heart disease of native coronary artery without angina pectoris; E78.5 Hyperlipidemia, unspecified; F17.210 Nicotine dependence, cigarettes, uncomplicated; R94.31 Abnormal electrocardiogram [ECG] [EKG]; E87.6 Hypokalemia; Z95.5 Presence of coronary angioplasty implant and graft
CPT/HCPCS: 36415; 70450-TC; 71045-TC-FY; 80053; 81003; 82550; 82553; 83880; 84484; 85025; 85610; 86769; 87086; 93005; 93010; 94640; 97116-GP; 97162-GP; 99285-25; C9803; J0131; U0003; U0005

== ENCOUNTER 2021-11-25 19:56 | Inpatient (IN) | payer OTHER ==
[2021-11-25] MEDS ORDERED: SODIUM CHLORIDE 0.9% 500 ML INFUS.BAG IV ONE (20:09)
[2021-11-25] MEDS ORDERED: DEXAMETHASONE SOD PHOSPHATE 10 MG/1 ML VIAL IVPUSH ONE (20:09)
[2021-11-25] MEDS ORDERED: ACETAMINOPHEN 1000 MG/100 ML BAG IVPB ONE (20:23)
[2021-11-25] MEDS ORDERED: ALBUTEROL SO4 2.5/IPRATROPIUM 0.5 INH SOL 3 ML VIAL.NEB. NEB ONE (21:03)
[2021-11-25] MEDS ORDERED: ACETAMINOPHEN INJECTION 100 ML IVPB ONE (21:03)
[2021-11-25] MEDS ORDERED: DEXAMETHASONE SOD PHOSPHATE 10 MG/1 ML VIAL ONE (21:03)
[2021-11-25] MEDS: ALBUTEROL SO4 2.5/IPRATROPIUM 0.5 INH SOL 3 ML VIAL.NEB. NEB SCH ×3 (21:11→21:12)
[2021-11-25] MEDS ORDERED: CEFTRIAXONE 1,000 MG in DEXTROSE 5%-WATER - 50 ML IVPB ONE (21:21)
[2021-11-25] MEDS ORDERED: AZITHROMYCIN IVPB 500 MG in DEXTROSE 5%-WATER - 250 ML IVPB ONE (21:21)
[2021-11-25] MEDS ORDERED: CEFTRIAXONE 1 GM/50 ML BAG ONE (21:29)
[2021-11-25] MEDS ORDERED: AZITHROMYCIN IVPB 500 MG/250 ML BAG IVPB ONE (21:29)
[2021-11-25 21:31] LABS: BASO % 1.2 % (0-2.0); HEMOGLOBIN 13.6 GM/dL (10.7-15.3); LYMPH % 8.4 % (8-40); MCH 27.9 pg (25.7-33.7); MCHC 33.1 g/dl (32.0-36.0); MEAN CELL VOLUME 84.2 fl (80-96); MEAN PLT VOLUME 8.7 fl (7.5-11.1); NEUT % 83.4 % (42.8-82.8); PLATELET COUNT 266 10^3/uL (134-434); RBC 4.87 M/mm3 (3.60-5.2); RDW 14.7 % (11.6-15.6); WHITE BLOOD COUNT 4.8 K/mm3 (4.0-10.0)
[2021-11-25 21:32] LABS: VENOUS BASE EXCESS 2.8 mmol/L (-2-2); VENOUS O2 SATURATION 49.9 % (70-80); VENOUS PCO2 54.9 mmHg (38-52); VENOUS PH 7.351 (7.310-7.410)
[2021-11-25 21:38] LABS: INR 1.15 (0.83-1.09); PROTHROMBIN TIME (PATIENT) 13.3 SEC (9.7-13.0)
[2021-11-25 21:47] LABS: ACTIVATED PTT 40.9 SECONDS (25.2-36.5)
[2021-11-25 22:12] LABS: EPI CELLS 14 /uL (0-25.1); HYALINE CASTS 1 /uL (0-3.1); URINE APPEARANCE CLEAR; URINE BACTERIA 69 /uL (0-1359); URINE BILIRUBIN NEGATIVE (NEGATIVE); URINE COLOR YELLOW; URINE GLUCOSE (UA) NEGATIVE (NEGATIVE); URINE KETONE TRACE (NEGATIVE); URINE LEUK ESTERASE NEGATIVE (NEGATIVE); URINE NITRITE NEGATIVE (NEGATIVE); URINE PROTEIN 1+ (NEGATIVE); URINE RBC 9 /uL (0-23.9); URINE UROBILINOGEN 0.2 mg/dL (0.2-1.0); URINE WBC 1 /uL (0-25.8)
[2021-11-25 22:12] LABS: ALBUMIN 3.6 g/dl (3.4-5.0); CALCIUM 9.2 mg/dL (8.5-10.1)
[2021-11-25 22:14] LABS: BLOOD UREA NITROGEN 4.4 mg/dL (7-18)
[2021-11-25 22:15] LABS: CREATININE 0.6 mg/dL (0.55-1.3)
[2021-11-25 22:18] LABS: BILIRUBIN,TOTAL 0.3 mg/dL (0.2-1)
[2021-11-25 22:21] LABS: N-TERMINAL BNP 797.4 pg/ml (5-125)
[2021-11-25 22:29] LABS: MAGNESIUM 1.8 mg/dL (1.8-2.4)
[2021-11-25] MEDS ORDERED: POTASSIUM CHLORIDE TABS 20 MEQ TABLET.ER (FP) PO ONE ×2 (22:30→22:58)
[2021-11-25] MEDS ORDERED: METOCLOPRAMIDE HCL INJECTION 10 MG/2 ML VIAL IVPB ONE (22:30)
[2021-11-25] MEDS ORDERED: METOCLOPRAMIDE HCL INJECTION 10 MG/2 ML VIAL ONE (22:58)
[2021-11-26] MEDS ORDERED: ASPIRIN 81 MG CHEWABLE TABLETS PO ONE (01:26)
[2021-11-26] MEDS ORDERED: ASPIRIN 81 MG CHEWABLE TABLETS ONE ×2 (02:00→08:06)
[2021-11-26] MEDS ORDERED: ACETAMINOPHEN 1000 MG/100 ML BAG IVPB ONE (06:02)
[2021-11-26 06:39] LABS: BASO % 0.8 % (0-2.0); HEMOGLOBIN 13.4 GM/dL (10.7-15.3); MCH 28.1 pg (25.7-33.7); MCHC 33.5 g/dl (32.0-36.0); MEAN CELL VOLUME 83.9 fl (80-96); MEAN PLT VOLUME 8.8 fl (7.5-11.1); MONO % 2.6 % (3.8-10.2); NEUT % 83.6 % (42.8-82.8); PLATELET COUNT 260 10^3/uL (134-434); RBC 4.76 M/mm3 (3.60-5.2); RDW 14.9 % (11.6-15.6); WHITE BLOOD COUNT 4.7 K/mm3 (4.0-10.0)
[2021-11-26] MEDS ORDERED: LOSARTAN POTASSIUM 50 MG TABLET ONE (08:05)
[2021-11-26] MEDS ORDERED: PANTOPRAZOLE 40 MG TABLET PO ONE (08:05)
[2021-11-26] MEDS ORDERED: NIFEdipine E.R. 30 MG TABLET ONE (08:06)
[2021-11-26] MEDS ORDERED: FOLIC ACID 1 MG TABLET (FP) ONE (08:06)
[2021-11-26] MEDS ORDERED: AZITHROMYCIN IVPB 500 MG/250 ML BAG IVPB ONE (08:07)
[2021-11-26] MEDS ORDERED: CEFTRIAXONE 1 GM/50 ML BAG ONE (08:07)
[2021-11-26 08:53] LABS: ALBUMIN 3.2 g/dl (3.4-5.0); ALK PHOS 115 U/L (45-117); ANION GAP 8 MMOL/L (8-16); BILIRUBIN,TOTAL 0.3 mg/dL (0.2-1); BLOOD UREA NITROGEN 5.8 mg/dL (7-18); CHLORIDE 100 mmol/L (98-107); CO2 28 mmol/L (21-32); CREATININE 0.6 mg/dL (0.55-1.3); GLUCOSE,RANDOM 129 mg/dL (74-106); SGOT/AST 39 U/L (15-37); SGPT/ALT 25 U/L (13-61); SODIUM 137 mmol/L (136-145); TOT PROT 7.4 g/dl (6.4-8.2)
[2021-11-26] MEDS: HEPARIN NA (PORCINE) 5,000 UNITS/ML 1ML VIAL SQ SCH ×2 (09:30→22:57)
[2021-11-26] MEDS: ASPIRIN 81 MG CHEWABLE TABLETS PO SCH (09:30)
[2021-11-26] MEDS: LOSARTAN POTASSIUM 50 MG TABLET PO SCH (09:30)
[2021-11-26] MEDS: PANTOPRAZOLE 40 MG TABLET PO SCH (09:30)
[2021-11-26] MEDS: FOLIC ACID 1 MG TABLET (FP) PO SCH (09:30)
[2021-11-26] MEDS ORDERED: HEPARIN NA (PORCINE) 5,000 UNITS/ML 1ML VIAL ONE ×2 (09:48→22:52)
[2021-11-26] MEDS: CEFTRIAXONE 1 GM in DEXTROSE 5%-WATER - 50 ML IVPB SCH (10:18)
[2021-11-26] MEDS: ROSUVASTATIN CA 10 MG TABLET PO SCH (11:00)
[2021-11-26] MEDS: AZITHROMYCIN IVPB 500 MG/250 ML BAG IVPB SCH (11:03)
[2021-11-26] MEDS: TIOTROPIUM BROMIDE 2.5 MCG (SPIRIVA) RESPIMAT INHALER IH SCH (11:03)
[2021-11-26] MEDS: BUDESONIDE/FORMETEROL FUMARATE 160/4.5 mcg INHALER IH SCH ×2 (11:03→22:50)
[2021-11-26] MEDS ORDERED: ALBUTEROL SO4 0.083% IH SOL 2.5 MG/3 ML VIAL.NEB. NEB PRN (12:33)
[2021-11-26] MEDS ORDERED: SODIUM CHLORIDE 0.45%/POT 20 MEQ/1,000 ML INFUS.BAG IV SCH (13:45)
[2021-11-26] MEDS ORDERED: methylPREDNISolone NA SUCC 40 MG/1 ML VIAL ONE (15:08)
[2021-11-26] MEDS ORDERED: ALBUTEROL SO4 2.5/IPRATROPIUM 0.5 INH SOL 3 ML VIAL.NEB. NEB ONE (15:08)
[2021-11-26] MEDS: ALBUTEROL SO4 2.5/IPRATROPIUM 0.5 INH SOL 3 ML VIAL.NEB. NEB SCH ×2 (15:29→20:26)
[2021-11-26] MEDS: methylPREDNISolone NA SUCC 40 MG/1 ML VIAL IVPUSH SCH ×2 (15:29→18:30)
[2021-11-26] MEDS: NIFEdipine E.R. 90 MG TABLET PO SCH (22:59)
[2021-11-27 02:02] VITALS: BMI 28.3
[2021-11-27] MEDS: methylPREDNISolone NA SUCC 40 MG/1 ML VIAL IVPUSH SCH ×3 (03:00→17:42)
[2021-11-27] MEDS: MELATONIN 5 MG TABLETS PO PRN ×2 (04:17→21:44)
[2021-11-27] MEDS ORDERED: LACTOBACILLUS ACIDOPHILUS 1 TABLET PO ONE (06:03)
[2021-11-27] MEDS: ALBUTEROL SO4 2.5/IPRATROPIUM 0.5 INH SOL 3 ML VIAL.NEB. NEB SCH ×4 (07:39→20:30)
[2021-11-27 08:09] LABS: BASO % 0.2 % (0-2.0); HEMATOCRIT 42.1 % (32.4-45.2); HEMOGLOBIN 13.6 GM/dL (10.7-15.3); LYMPH % 13.9 % (8-40); MCH 27.6 pg (25.7-33.7); MCHC 32.3 g/dl (32.0-36.0); MEAN CELL VOLUME 85.4 fl (80-96); MEAN PLT VOLUME 9.5 fl (7.5-11.1); NEUT % 79.9 % (42.8-82.8); PLATELET COUNT 256 10^3/uL (134-434); RBC 4.93 M/mm3 (3.60-5.2); WHITE BLOOD COUNT 7.4 K/mm3 (4.0-10.0)
[2021-11-27 08:18] LABS: BLOOD UREA NITROGEN 10.8 mg/dL (7-18); CALCIUM 9.2 mg/dL (8.5-10.1)
[2021-11-27 08:21] LABS: CREATININE 0.8 mg/dL (0.55-1.3)
[2021-11-27] MEDS ORDERED: DEXTROSE 5%-WATER - 50 ML IVPB ONE (10:07)
[2021-11-27] MEDS ORDERED: cefTRIAXone SODIUM 1 GM VIAL ONE (10:07)
[2021-11-27] MEDS: CEFTRIAXONE 1 GM in DEXTROSE 5%-WATER - 50 ML IVPB SCH (10:32)
[2021-11-27] MEDS: FOLIC ACID 1 MG TABLET (FP) PO SCH (10:32)
[2021-11-27] MEDS: ASPIRIN 81 MG CHEWABLE TABLETS PO SCH (10:33)
[2021-11-27] MEDS: HEPARIN NA (PORCINE) 5,000 UNITS/ML 1ML VIAL SQ SCH ×2 (10:33→21:44)
[2021-11-27] MEDS: PANTOPRAZOLE 40 MG TABLET PO SCH (10:33)
[2021-11-27] MEDS: LOSARTAN POTASSIUM 50 MG TABLET PO SCH (10:33)
[2021-11-27] MEDS: ROSUVASTATIN CA 10 MG TABLET PO SCH (10:33)
[2021-11-27] MEDS: BUDESONIDE/FORMETEROL FUMARATE 160/4.5 mcg INHALER IH SCH ×3 (10:34→21:45)
[2021-11-27] MEDS: TIOTROPIUM BROMIDE 2.5 MCG (SPIRIVA) RESPIMAT INHALER IH SCH ×2 (10:34→11:27)
[2021-11-27] MEDS: AZITHROMYCIN IVPB 500 MG/250 ML BAG IVPB SCH (12:10)
[2021-11-27] MEDS: NICOTINE 21 MG/24 HOURS TOPICAL PATCH TD SCH (12:43)
[2021-11-27] MEDS: NIFEdipine E.R. 90 MG TABLET PO SCH (18:35)
[2021-11-27] MEDS: guaiFENesin/D-METHORPHAN HB 10 ML UNIT-DOSE CUPS PO PRN (21:44)
[2021-11-28] MEDS: methylPREDNISolone NA SUCC 40 MG/1 ML VIAL IVPUSH SCH ×3 (02:07→17:08)
[2021-11-28] MEDS: guaiFENesin/D-METHORPHAN HB 10 ML UNIT-DOSE CUPS PO PRN (05:34)
[2021-11-28] MEDS: ALBUTEROL SO4 2.5/IPRATROPIUM 0.5 INH SOL 3 ML VIAL.NEB. NEB SCH ×4 (07:51→19:45)
[2021-11-28] MEDS ORDERED: DEXTROSE 5%-WATER - 50 ML IVPB ONE (10:13)
[2021-11-28] MEDS ORDERED: cefTRIAXone SODIUM 1 GM VIAL ONE (10:13)
[2021-11-28] MEDS: CEFTRIAXONE 1 GM in DEXTROSE 5%-WATER - 50 ML IVPB SCH (10:16)
[2021-11-28] MEDS: FOLIC ACID 1 MG TABLET (FP) PO SCH (10:22)
[2021-11-28] MEDS: LACTOBACILLUS ACIDOPHILUS 1 TABLET PO SCH (10:22)
[2021-11-28] MEDS: LOSARTAN POTASSIUM 50 MG TABLET PO SCH (10:22)
[2021-11-28] MEDS: PANTOPRAZOLE 40 MG TABLET PO SCH (10:22)
[2021-11-28] MEDS: ROSUVASTATIN CA 10 MG TABLET PO SCH (10:22)
[2021-11-28] MEDS: NICOTINE 21 MG/24 HOURS TOPICAL PATCH TD SCH (10:23)
[2021-11-28] MEDS: HEPARIN NA (PORCINE) 5,000 UNITS/ML 1ML VIAL SQ SCH ×2 (10:24→21:52)
[2021-11-28] MEDS: TIOTROPIUM BROMIDE 2.5 MCG (SPIRIVA) RESPIMAT INHALER IH SCH (10:27)
[2021-11-28] MEDS: BUDESONIDE/FORMETEROL FUMARATE 160/4.5 mcg INHALER IH SCH ×2 (10:27→21:50)
[2021-11-28] MEDS: NIFEdipine E.R. 90 MG TABLET PO SCH (10:27)
[2021-11-28] MEDS: ASPIRIN 81 MG CHEWABLE TABLETS PO SCH (10:27)
[2021-11-28] MEDS: AZITHROMYCIN IVPB 500 MG/250 ML BAG IVPB SCH (10:59)
[2021-11-28] MEDS ORDERED: ACETAMINOPHEN 325 MG TABLET (FP) PO PRN (15:06)
[2021-11-28] MEDS ORDERED: ROSUVASTATIN CA 20 MG TABLET PO SCH (15:15)
[2021-11-28] MEDS: guaiFENesin 200 MG/10 ML 10 ML UNIT-DOSE CUPS PO PRN ×2 (15:41→21:51)
[2021-11-28] MEDS: MELATONIN 5 MG TABLETS PO PRN (21:52)
[2021-11-29] MEDS: methylPREDNISolone NA SUCC 40 MG/1 ML VIAL IVPUSH SCH ×3 (01:47→18:31)
[2021-11-29] MEDS: ALBUTEROL SO4 2.5/IPRATROPIUM 0.5 INH SOL 3 ML VIAL.NEB. NEB SCH ×4 (07:51→20:41)
[2021-11-29] MEDS ORDERED: DEXTROSE 5%-WATER - 50 ML IVPB ONE (09:48)
[2021-11-29] MEDS ORDERED: cefTRIAXone SODIUM 1 GM VIAL ONE (09:48)
[2021-11-29] MEDS: NICOTINE 21 MG/24 HOURS TOPICAL PATCH TD SCH (10:04)
[2021-11-29] MEDS: LACTOBACILLUS ACIDOPHILUS 1 TABLET PO SCH (10:04)
[2021-11-29] MEDS: ASPIRIN 81 MG CHEWABLE TABLETS PO SCH (10:04)
[2021-11-29] MEDS: CEFTRIAXONE 1 GM in DEXTROSE 5%-WATER - 50 ML IVPB SCH (10:04)
[2021-11-29] MEDS: HEPARIN NA (PORCINE) 5,000 UNITS/ML 1ML VIAL SQ SCH ×2 (10:04→21:21)
[2021-11-29] MEDS: AZITHROMYCIN IVPB 500 MG/250 ML BAG IVPB SCH (10:04)
[2021-11-29] MEDS: ROSUVASTATIN CA 20 MG TABLET PO SCH (10:05)
[2021-11-29] MEDS: LOSARTAN POTASSIUM 50 MG TABLET PO SCH (10:05)
[2021-11-29] MEDS: FOLIC ACID 1 MG TABLET (FP) PO SCH (10:06)
[2021-11-29] MEDS: NIFEdipine E.R. 90 MG TABLET PO SCH (10:08)
[2021-11-29] MEDS: BUDESONIDE/FORMETEROL FUMARATE 160/4.5 mcg INHALER IH SCH ×2 (10:08→21:21)
[2021-11-29] MEDS: TIOTROPIUM BROMIDE 2.5 MCG (SPIRIVA) RESPIMAT INHALER IH SCH (10:08)
[2021-11-29] MEDS: PANTOPRAZOLE 40 MG TABLET PO SCH (10:08)
[2021-11-29] MEDS: guaiFENesin 200 MG/10 ML 10 ML UNIT-DOSE CUPS PO PRN ×2 (11:32→21:19)
[2021-11-29] MEDS: MELATONIN 5 MG TABLETS PO PRN (21:19)
[2021-11-29] MEDS ORDERED: MELATONIN 5 MG TABLETS PO ONE (21:38)
[2021-11-30] MEDS: methylPREDNISolone NA SUCC 40 MG/1 ML VIAL IVPUSH SCH ×3 (01:13→18:12)
[2021-11-30] MEDS: guaiFENesin 200 MG/10 ML 10 ML UNIT-DOSE CUPS PO PRN ×2 (06:43→18:12)
[2021-11-30] MEDS: ALBUTEROL SO4 2.5/IPRATROPIUM 0.5 INH SOL 3 ML VIAL.NEB. NEB SCH ×4 (07:15→20:10)
[2021-11-30] MEDS ORDERED: DEXTROSE 5%-WATER - 50 ML IVPB ONE (09:06)
[2021-11-30] MEDS ORDERED: cefTRIAXone SODIUM 1 GM VIAL ONE (09:06)
[2021-11-30] MEDS: FOLIC ACID 1 MG TABLET (FP) PO SCH (10:05)
[2021-11-30] MEDS: LACTOBACILLUS ACIDOPHILUS 1 TABLET PO SCH (10:05)
[2021-11-30] MEDS: ASPIRIN 81 MG CHEWABLE TABLETS PO SCH (10:06)
[2021-11-30] MEDS: HEPARIN NA (PORCINE) 5,000 UNITS/ML 1ML VIAL SQ SCH ×2 (10:06→21:58)
[2021-11-30] MEDS: NIFEdipine E.R. 90 MG TABLET PO SCH (10:06)
[2021-11-30] MEDS: LOSARTAN POTASSIUM 50 MG TABLET PO SCH (10:06)
[2021-11-30] MEDS: ROSUVASTATIN CA 20 MG TABLET PO SCH (10:06)
[2021-11-30] MEDS: CEFTRIAXONE 1 GM in DEXTROSE 5%-WATER - 50 ML IVPB SCH (10:07)
[2021-11-30] MEDS: NICOTINE 21 MG/24 HOURS TOPICAL PATCH TD SCH (10:07)
[2021-11-30] MEDS: PANTOPRAZOLE 40 MG TABLET PO SCH (10:08)
[2021-11-30] MEDS: AZITHROMYCIN IVPB 500 MG/250 ML BAG IVPB SCH (10:09)
[2021-11-30] MEDS: TIOTROPIUM BROMIDE 2.5 MCG (SPIRIVA) RESPIMAT INHALER IH SCH (10:32)
[2021-11-30] MEDS: BUDESONIDE/FORMETEROL FUMARATE 160/4.5 mcg INHALER IH SCH ×2 (10:32→21:59)
[2021-11-30] MEDS: MELATONIN 5 MG TABLETS PO PRN ×2 (22:00→23:39)
[2021-12-01] MEDS: methylPREDNISolone NA SUCC 40 MG/1 ML VIAL IVPUSH SCH (01:00)
[2021-12-01] MEDS: guaiFENesin 200 MG/10 ML 10 ML UNIT-DOSE CUPS PO PRN ×2 (01:00→09:11)
[2021-12-01 02:40] LABS: BASO % 0.6 % (0-2.0); HEMATOCRIT 39.6 % (32.4-45.2); LYMPH % 22.3 % (8-40); MCH 27.7 pg (25.7-33.7); MCHC 32.9 g/dl (32.0-36.0); MEAN CELL VOLUME 84.3 fl (80-96); MEAN PLT VOLUME 8.9 fl (7.5-11.1); MONO % 10.1 % (3.8-10.2); PLATELET COUNT 213 10^3/uL (134-434); RBC 4.69 M/mm3 (3.60-5.2); RDW 14.6 % (11.6-15.6); WHITE BLOOD COUNT 5.4 K/mm3 (4.0-10.0)
[2021-12-01 02:57] LABS: CALCIUM 8.9 mg/dL (8.5-10.1)
[2021-12-01 02:58] LABS: BLOOD UREA NITROGEN 9.4 mg/dL (7-18); MAGNESIUM 2.1 mg/dL (1.8-2.4)
[2021-12-01 03:01] LABS: CREATININE 0.5 mg/dL (0.55-1.3)
[2021-12-01] MEDS ORDERED: POTASSIUM CHLORIDE TABS 20 MEQ TABLET.ER (FP) PO ONE (04:08)
[2021-12-01] MEDS: ALBUTEROL SO4 2.5/IPRATROPIUM 0.5 INH SOL 3 ML VIAL.NEB. NEB SCH ×2 (07:25→11:13)
[2021-12-01] MEDS ORDERED: DEXTROSE 5%-WATER - 50 ML IVPB ONE (08:55)
[2021-12-01] MEDS ORDERED: cefTRIAXone SODIUM 1 GM VIAL ONE (08:55)
[2021-12-01] MEDS ORDERED: ROSUVASTATIN CA 20 MG TABLET PO SCH (09:04)
[2021-12-01] MEDS: LACTOBACILLUS ACIDOPHILUS 1 TABLET PO SCH (09:11)
[2021-12-01] MEDS: NIFEdipine E.R. 90 MG TABLET PO SCH (09:11)
[2021-12-01] MEDS: FOLIC ACID 1 MG TABLET (FP) PO SCH (09:11)
[2021-12-01] MEDS: ASPIRIN 81 MG CHEWABLE TABLETS PO SCH (09:11)
[2021-12-01] MEDS: HEPARIN NA (PORCINE) 5,000 UNITS/ML 1ML VIAL SQ SCH ×2 (09:11→21:04)
[2021-12-01] MEDS: TIOTROPIUM BROMIDE 2.5 MCG (SPIRIVA) RESPIMAT INHALER IH SCH (09:11)
[2021-12-01] MEDS: LOSARTAN POTASSIUM 50 MG TABLET PO SCH (09:11)
[2021-12-01] MEDS: CEFTRIAXONE 1 GM in DEXTROSE 5%-WATER - 50 ML IVPB SCH (09:11)
[2021-12-01] MEDS: predniSONE 10 MG TABLET (UD) PO SCH ×2 (09:11→21:05)
[2021-12-01] MEDS: AZITHROMYCIN IVPB 500 MG/250 ML BAG IVPB SCH (09:11)
[2021-12-01] MEDS: PANTOPRAZOLE 40 MG TABLET PO SCH (09:11)
[2021-12-01] MEDS: NICOTINE 21 MG/24 HOURS TOPICAL PATCH TD SCH (09:12)
[2021-12-01] MEDS: BUDESONIDE/FORMETEROL FUMARATE 160/4.5 mcg INHALER IH SCH ×2 (09:12→21:05)
[2021-12-01] MEDS: ROSUVASTATIN CA 20 MG TABLET PO SCH (21:05)
[2021-12-01] MEDS: MELATONIN 5 MG TABLETS PO PRN (21:12)
[2021-12-02 08:32] LABS: CALCIUM 8.7 mg/dL (8.5-10.1)
[2021-12-02 08:34] LABS: BLOOD UREA NITROGEN 11.2 mg/dL (7-18)
[2021-12-02 08:36] LABS: CREATININE 0.5 mg/dL (0.55-1.3)
[2021-12-02] MEDS ORDERED: cefTRIAXone SODIUM 1 GM VIAL ONE (09:26)
[2021-12-02] MEDS ORDERED: DEXTROSE 5%-WATER - 50 ML IVPB ONE (09:26)
[2021-12-02] MEDS: predniSONE 10 MG TABLET (UD) PO SCH ×2 (09:37→21:10)
[2021-12-02] MEDS: FOLIC ACID 1 MG TABLET (FP) PO SCH (09:37)
[2021-12-02] MEDS: LOSARTAN POTASSIUM 50 MG TABLET PO SCH (09:37)
[2021-12-02] MEDS: PANTOPRAZOLE 40 MG TABLET PO SCH (09:37)
[2021-12-02] MEDS: ASPIRIN 81 MG CHEWABLE TABLETS PO SCH (09:37)
[2021-12-02] MEDS: NIFEdipine E.R. 90 MG TABLET PO SCH (09:37)
[2021-12-02] MEDS: HEPARIN NA (PORCINE) 5,000 UNITS/ML 1ML VIAL SQ SCH ×2 (09:38→21:11)
[2021-12-02] MEDS: CEFTRIAXONE 1 GM in DEXTROSE 5%-WATER - 50 ML IVPB SCH (09:38)
[2021-12-02] MEDS: NICOTINE 21 MG/24 HOURS TOPICAL PATCH TD SCH (09:38)
[2021-12-02] MEDS: LACTOBACILLUS ACIDOPHILUS 1 TABLET PO SCH (09:38)
[2021-12-02] MEDS: AZITHROMYCIN IVPB 500 MG/250 ML BAG IVPB SCH (09:39)
[2021-12-02] MEDS: BUDESONIDE/FORMETEROL FUMARATE 160/4.5 mcg INHALER IH SCH ×2 (10:02→21:11)
[2021-12-02] MEDS: TIOTROPIUM BROMIDE 2.5 MCG (SPIRIVA) RESPIMAT INHALER IH SCH (10:02)
[2021-12-02] MEDS: MELATONIN 5 MG TABLETS PO PRN (21:10)
[2021-12-02] MEDS: ROSUVASTATIN CA 20 MG TABLET PO SCH (21:10)
[2021-12-03] MEDS ORDERED: DEXTROSE 5%-WATER - 50 ML IVPB ONE (08:28)
[2021-12-03] MEDS ORDERED: cefTRIAXone SODIUM 1 GM VIAL ONE (08:28)
[2021-12-03] MEDS: ASPIRIN 81 MG CHEWABLE TABLETS PO SCH (09:13)
[2021-12-03] MEDS: LACTOBACILLUS ACIDOPHILUS 1 TABLET PO SCH (09:13)
[2021-12-03] MEDS: LOSARTAN POTASSIUM 50 MG TABLET PO SCH (09:15)
[2021-12-03] MEDS: FOLIC ACID 1 MG TABLET (FP) PO SCH (09:16)
[2021-12-03] MEDS: predniSONE 10 MG TABLET (UD) PO SCH (09:16)
[2021-12-03] MEDS: PANTOPRAZOLE 40 MG TABLET PO SCH (09:17)
[2021-12-03] MEDS: BUDESONIDE/FORMETEROL FUMARATE 160/4.5 mcg INHALER IH SCH (09:23)
[2021-12-03] MEDS: TIOTROPIUM BROMIDE 2.5 MCG (SPIRIVA) RESPIMAT INHALER IH SCH (09:24)
[2021-12-03] MEDS: NIFEdipine E.R. 90 MG TABLET PO SCH (09:28)
[2021-12-03] MEDS: NICOTINE 21 MG/24 HOURS TOPICAL PATCH TD SCH (09:39)
[2021-12-03 11:56] VITALS: BP 146/72; PULSE 62; TEMP 98.5
== END 2021-12-03 12:15 | disposition home or self-care (01) | DRG 190 ==
LOC: JER 19:56 → JERBED 22:23 → J4S 11-26 23:44
PROVIDERS: ADMIT Hospitalist; ATTEND Family Medicine
DX: J44.0 Chronic obstructive pulmonary disease with (acute) lower respiratory infection (principal); J18.9 Pneumonia, unspecified organism; I24.8 Other forms of acute ischemic heart disease; E87.1 Hypo-osmolality and hyponatremia; J44.1 Chronic obstructive pulmonary disease with (acute) exacerbation; M06.9 Rheumatoid arthritis, unspecified; E78.5 Hyperlipidemia, unspecified; I25.10 Atherosclerotic heart disease of native coronary artery without angina pectoris; F41.8 Other specified anxiety disorders; F25.9 Schizoaffective disorder, unspecified; M54.50 Low back pain, unspecified; R77.8 Other specified abnormalities of plasma proteins; I49.9 Cardiac arrhythmia, unspecified; E87.6 Hypokalemia; I11.0 Hypertensive heart disease with heart failure; I50.9 Heart failure, unspecified; E05.90 Thyrotoxicosis, unspecified without thyrotoxic crisis or storm; E86.1 Hypovolemia; E66.9 Obesity, unspecified; Z68.28 Body mass index [BMI] 28.0-28.9, adult; R09.02 Hypoxemia; F17.210 Nicotine dependence, cigarettes, uncomplicated; Z95.5 Presence of coronary angioplasty implant and graft
CPT/HCPCS: 36415; 71045-TC-FY; 71275-TC; 80048; 80053; 81003; 82550; 82553; 82803; 83605; 83735; 83880; 84439; 84443; 84481; 84484; 85025; 85610; 85730; 86850; 86900; 86901; 87040; 87086; 87186; 87633; 87804; 87807; 87899; 93005; 93010; 94640; 94761; 99285-25; C9803-CS; J1100; J1644; J3480; U0003; U0005

== ENCOUNTER 2022-12-02 10:56 | Emergency (ER) | payer OTHER ==
[2022-12-02 11:03] VITALS: TEMP 98.8; BMI 28.6
[2022-12-02] MEDS ORDERED: predniSONE 20 MG TABLET (UD) PO ONE (12:33)
[2022-12-02] MEDS ORDERED: ALBUTEROL SO4 2.5/IPRATROPIUM 0.5 INH SOL 3 ML VIAL.NEB. NEB ONE ×2 (12:33→13:11)
[2022-12-02] MEDS ORDERED: predniSONE 10 MG TABLET (UD) ONE (13:12)
[2022-12-02] MEDS ORDERED: predniSONE 20 MG TABLET (UD) ONE (13:12)
[2022-12-02 14:39] VITALS: BP 128/76; PULSE 90; RESP 18
== END 2022-12-02 14:39 | disposition home or self-care (01) ==
LOC: JER 10:56
PROC: 3E0F7GC Introduction of Other Therapeutic Substance into Respiratory Tract, Via Natural or Artificial Opening (ICD-10-PCS; principal; 2022-12-02)
DX: U07.1 COVID-19 (principal); J20.9 Acute bronchitis, unspecified; R05.9 Cough, unspecified; R09.3 Abnormal sputum; Z20.822 Contact with and (suspected) exposure to COVID-19
CPT/HCPCS: 71045-TC-FY; 93005; 93010; 99284-25

== ENCOUNTER 2024-03-10 15:22 | Emergency (ER) | payer OTHER ==
[2024-03-10 15:56] VITALS: TEMP 98.5; BMI 24.3
[2024-03-10 16:46] LABS: BASO % 0.5 % (0-2.0); EOS % 1.5 % (0-4.5); HEMATOCRIT 43.4 % (32.4-45.2); HEMOGLOBIN 14.2 GM/dL (10.7-15.3); LYMPH % 9.7 % (8-40); MCH 29.2 pg (25.7-33.7); MCHC 32.7 g/dl (32.0-36.0); MEAN CELL VOLUME 89.4 fl (80-96); MEAN PLT VOLUME 8.6 fl (7.5-11.1); MONO % 2.8 % (3.8-10.2); NEUT % 85.5 % (42.8-82.8); PLATELET COUNT 364 10^3/uL (134-434); RBC 4.85 M/mm3 (3.60-5.2); WHITE BLOOD COUNT 7.6 K/mm3 (4.0-10.0)
[2024-03-10] MEDS ORDERED: ALBUTEROL SO4 2.5/IPRATROPIUM 0.5 INH SOL 3 ML VIAL.NEB. NEB ONE (16:52)
[2024-03-10] MEDS ORDERED: methylPREDNISolone NA SUCC 125 MG/2 ML VIAL ONE (16:53)
[2024-03-10] MEDS: methylPREDNISolone NA SUCC 125 MG/2 ML VIAL IVPUSH ONE (17:03)
[2024-03-10] MEDS: ALBUTEROL SO4 2.5/IPRATROPIUM 0.5 INH SOL 3 ML VIAL.NEB. NEB ONE (17:03)
[2024-03-10] MEDS: methylPREDNISolone NA SUCC 40 MG/1 ML VIAL IVPUSH ONE (17:04)
[2024-03-10 17:07] LABS: POTASSIUM 3.6 mmol/L (3.5-5.1)
[2024-03-10 17:09] LABS: ALBUMIN 3.2 g/dl (3.4-5.0); BLOOD UREA NITROGEN 11.1 mg/dL (7-18); CALCIUM 9.6 mg/dL (8.5-10.1)
[2024-03-10 17:14] LABS: BILIRUBIN,TOTAL 0.3 mg/dL (0.2-1); CREATININE 0.6 mg/dL (0.55-1.3); TOT PROT 7.2 g/dl (6.4-8.2)
[2024-03-10 17:18] LABS: N-TERMINAL BNP 285.2 pg/ml (5-125)
[2024-03-10 17:18] LABS: VENOUS BASE EXCESS 1.6 mmol/L (-2-2); VENOUS O2 SATURATION 62.6 % (70-80); VENOUS PCO2 57.1 mmHg (38-52); VENOUS PH 7.324 (7.310-7.410)
[2024-03-10] MEDS ORDERED: FENTANYL CITRATE/PF 50 MCG/ML VIAL ONE (17:48)
[2024-03-10] MEDS ORDERED: LIDOCAINE HCL 1%, 10 MG/ML (20ML VIAL) ONE (17:53)
[2024-03-10 18:24] VITALS: BP 159/87
[2024-03-10] MEDS: LIDOCAINE HCL 1%, 10 MG/ML (50 mL VIAL) SQ ONE (18:40)
[2024-03-10] MEDS ORDERED: ACETAMINOPHEN 325 MG TABLET (FP) ONE (18:55)
[2024-03-10] MEDS: ACETAMINOPHEN 500 MG TABLET (FP) PO ONE (18:58)
[2024-03-10 19:58] VITALS: PULSE 99; RESP 24
== END 2024-03-10 19:43 | disposition short-term general hospital (02) ==
LOC: JER 15:22
PROC: 3E033NZ Introduction of Analgesics, Hypnotics, Sedatives into Peripheral Vein, Percutaneous Approach (ICD-10-PCS; principal; 2024-03-10)
PROC: 3E033GC Introduction of Other Therapeutic Substance into Peripheral Vein, Percutaneous Approach (ICD-10-PCS; 2024-03-10)
PROC: 3E0F7GC Introduction of Other Therapeutic Substance into Respiratory Tract, Via Natural or Artificial Opening (ICD-10-PCS; 2024-03-10)
DX: J93.9 Pneumothorax, unspecified (principal); R06.02 Shortness of breath; R42 Dizziness and giddiness; R51.9 Headache, unspecified; Z20.822 Contact with and (suspected) exposure to COVID-19
CPT/HCPCS: 0241U-QW; 36415; 71045-TC-FY; 71250-TC; 80053; 82803; 83880; 84484; 85025; 93005; 93010; 99285-25

== ENCOUNTER 2024-03-20 21:13 | Emergency (ER) | payer OTHER ==
[2024-03-20 21:21] VITALS: BP 120/63; PULSE 73; RESP 20; TEMP 98.4; BMI 25.0
[2024-03-20 22:34] LABS: BASO % 2.4 % (0-2.0); EOS % 3.8 % (0-4.5); HEMATOCRIT 40.7 % (32.4-45.2); HEMOGLOBIN 13.1 GM/dL (10.7-15.3); LYMPH % 29.3 % (8-40); MCH 28.7 pg (25.7-33.7); MCHC 32.1 g/dl (32.0-36.0); MEAN CELL VOLUME 89.5 fl (80-96); MEAN PLT VOLUME 8.6 fl (7.5-11.1); MONO % 11.2 % (3.8-10.2); NEUT % 53.3 % (42.8-82.8); PLATELET COUNT 319 10^3/uL (134-434); RBC 4.55 M/mm3 (3.60-5.2); RDW 14.4 % (11.6-15.6); WHITE BLOOD COUNT 7.9 K/mm3 (4.0-10.0)
[2024-03-20 22:48] LABS: POTASSIUM 3.3 mmol/L (3.5-5.1)
[2024-03-20 22:50] LABS: ALBUMIN 3.1 g/dl (3.4-5.0); BLOOD UREA NITROGEN 10.2 mg/dL (7-18); CALCIUM 8.9 mg/dL (8.5-10.1); MAGNESIUM 2.1 mg/dL (1.8-2.4)
[2024-03-20 22:53] LABS: CREATININE 0.6 mg/dL (0.55-1.3)
[2024-03-20 22:55] LABS: BILIRUBIN,TOTAL 0.4 mg/dL (0.2-1)
[2024-03-20 23:35] LABS: EPI CELLS 31 /uL (0-25.1); HYALINE CASTS 0 /uL (0-3.1); URINE APPEARANCE CLEAR; URINE BACTERIA 550 /uL (0-1359); URINE BILIRUBIN NEGATIVE (NEGATIVE); URINE COLOR YELLOW; URINE GLUCOSE (UA) NEGATIVE (NEGATIVE); URINE KETONE NEGATIVE (NEGATIVE); URINE LEUK ESTERASE TRACE (NEGATIVE); URINE NITRITE NEGATIVE (NEGATIVE); URINE PROTEIN NEGATIVE (NEGATIVE); URINE RBC 5 /uL (0-23.9); URINE UROBILINOGEN 0.2 mg/dL (0.2-1.0); URINE WBC 17 /uL (0-25.8)
[2024-03-20 23:45] LABS: HIV INTERPRETATION NEGATIVE (NEGATIVE)
[2024-03-21] MEDS ORDERED: POTASSIUM CHLORIDE ORAL LIQUID 20 MEQ/15 ML ONE (00:43)
[2024-03-21] MEDS: POTASSIUM CHLORIDE ORAL LIQUID 20 MEQ/15 ML PO ONE (00:45)
== END 2024-03-21 01:00 | disposition home or self-care (01) ==
LOC: JER 21:13
DX: R42 Dizziness and giddiness (principal); M79.662 Pain in left lower leg; R07.89 Other chest pain; R06.02 Shortness of breath; R60.0 Localized edema
CPT/HCPCS: 36415; 71046-TC-FY; 80053; 81003; 83735; 84443; 84484; 85025; 86803; 87086; 87389; 93005; 93010; 93971-TC; 99285-25